=== PATIENT | female | born 1990 | race Caucasian/White ===

== ENCOUNTER 2018-03-31 18:56 | Emergency (ER) | payer MEDICAID ==
[2018-03-31] MEDS: IBUPROFEN 800 MG TAB PO (21:32)
== END 2018-03-31 23:11 | disposition home or self-care (01) ==
LOC: FTE 18:56
DX: S89.91XA Unspecified injury of right lower leg, initial encounter (principal); W11.XXXA Fall on and from ladder, initial encounter; Y92.9 Unspecified place or not applicable
CPT/HCPCS: 73562; 99283-25